=== PATIENT | male | born 1955 ===

== ENCOUNTER → 2024-12-29 | Outpatient (REF) | payer OTHER ==
[2025-01-01 10:45] LABS: BASO % 0.8 % (0.0-1.0); EOS % 3.0 % (0.0-3.0); LYMPH % 27.0 % (24.0-44.0); MONO % 14.8 % (2.0-8.0); NEUTROPHILS % 54.2 % (36.0-66.0); PLATELET COUNT, AUTOMATED 260 10^3/uL (150-450)
[2025-01-01 10:46] LABS: BASO # 0.0 10^3/uL (0.0-0.2); EOS # 0.2 10^3/uL (0.0-0.5); LYMPH # 1.3 10^3/uL (1.5-5.0); MONO # 0.7 10^3/uL (0.0-0.8); NEUTROPHILS # 2.7 10^3/uL (1.5-8.5)
[2025-01-01 10:48] LABS: ALT/SGPT 43 U/L (7.0-40); AST/SGOT 33 U/L (<34); CALCIUM LEVEL 8.1 MG/DL (8.3-10.6); CARBON DIOXIDE LEVEL 23.1 MMOL/L (20-31); CHLORIDE LEVEL 108 MMOL/L (98-107); CREATININE FOR GFR 0.76 MG/DL (0.70-1.30); GLOMERULAR FILTRATION RATE > 90.0 (>42); POTASSIUM SERUM 4.8 MMOL/L (3.5-5.1); SODIUM LEVEL 142 MMOL/L (136-145)
[2025-01-01 10:49] LABS: C REACTIVE PROTEIN QUANTITATIV 3.52 MG/DL (<1.0)
== END ==
LOC: M LAB REF 10:30
DX: L02.413 Cutaneous abscess of right upper limb (principal); A41.89 Other specified sepsis